=== PATIENT | female | born 1960 | race African-American/Black ===

== ENCOUNTER → 2017-05-24 | Day surgery (SDC) | payer OTHER ==
[~2017-05-24] MED LIST: ALBUTEROL; FLOVENT DISKUS50 MCG; FOLIC ACID1 MG PO; METHOTREXATE2.5 MG; SERTRALINE HCL100 MG PO; SINGULAIR PO; SPIRIVA RESPIMAT4 G1; VENTOLIN HFA; [UNRECOGNIZED DRUG - OTHER]
--- NOTE | ~2017-05-24 | OR ---
Unit #: [id number] #: [id number] Patient: SANDI LEE [id number] [address] [address] [id number] O MR#: [id number] NAME: SANDI LEE ROOM: Date of Procedure: 05/24/2017 Admission Date: 05/24/2017 Surgeon: Edouard Alvarez M.D. : 1960 Attending Physician: Edouard Alvarez M.D. Referring Physician: Edouard Alvarez M.D. Primary Care Physician: Rajwinder Workman Aprn OPERATIVE REPORT PROCEDURE PERFORMED Colonoscopy to cecum with snare polypectomy. INDICATIONS A 56-year-old with family history of colon cancer in mother, undergoing colonoscopy for evaluation. MEDICATIONS Monitored anesthesia. POSTOPERATIVE FINDINGS 1. Good prep. 2. 3 to 5 mm polyp in descending colon, removed using biopsy forceps. 3. Internal hemorrhoids. PLAN Followup on pathology report and repeat colonoscopy in 5 years. DESCRIPTION OF PROCEDURE The patient was explained of the procedure, risks, and benefits along with the risks and benefits of anesthesia. She was brought to the endoscopy room. Propofol anesthesia was given. Rectal exam was done, which was normal. Colonoscope was lubricated, passed up the rectum, advanced under direct vision all the way to the cecum. Cecum was identified by ileocecal valve and appendiceal orifice. A small polyp was removed as described. I retroflexed in the rectum. Internal hemorrhoids were noted. Gently, the scope was pulled out. No immediate complications noted. Dictated by... Franco Johnson/julieta TD: 05/25/2017 08:41 JOB #: [id number] Unit #: [id number] #: [id number] Patient: SANDI LEE OPERATIVE REPORT Page 1 of 1 X Edouard Alvarez MD X PROCEDURE OPERATIVE NOTE
== END | disposition home or self-care (01) ==
LOC: COPS 08:24
DX: Z12.11 Encounter for screening for malignant neoplasm of colon (principal); K63.5 Polyp of colon; K64.8 Other hemorrhoids; J44.9 Chronic obstructive pulmonary disease, unspecified; F17.210 Nicotine dependence, cigarettes, uncomplicated; Z87.01 Personal history of pneumonia (recurrent); Z80.0 Family history of malignant neoplasm of digestive organs; Z79.899 Other long term (current) drug therapy; Z99.81 Dependence on supplemental oxygen; Z90.49 Acquired absence of other specified parts of digestive tract
CPT/HCPCS: 88305; J2250